=== PATIENT | female | born 1980 | race Caucasian/White ===

== ENCOUNTER 2016-06-14 21:18 | Day surgery (SDC) | payer OTHER ==
[~2016-06-14] VITALS: Ht 167.6 cm; Wt 84.7 kg
[2016-06-14 22:04] LABS: HEMATOCRIT 44.4 % (36.0-46.0); MCH 31.6 PG (29.0-34.0); MCHC 33.8 G/DL (30.0-36.0); MCV 93.5 FL (83-99); MEAN PLAT.VOLUME 9.7 uM^3 (9.5-12.4); PLATELET COUNT 232 K/uL (156-360); RBC DIS.WIDTH-CV 12.2 % (11.8-14.6); RED BLOOD COUNT 4.75 M/uL (3.80-5.20); WHITE BLOOD COUNT 19.5 K/uL (4.1-10.2)
[2016-06-14 22:11] LABS: CHLORIDE 103 mEq/L (99-109); POTASSIUM 3.6 mEq/L (3.7-5.4); SODIUM 138 mEq/L (136-147)
[2016-06-14 22:13] LABS: GLUCOSE 114 mg/dL (70-99)
[2016-06-14 22:15] LABS: ANION GAP 13 MEQ/L (2-14); TOTAL BILIRUBIN 2.7 mg/dL (0.0-1.0)
[2016-06-14 22:17] LABS: ALKALINE PHOSPHATASE 74 IU/L (3-129); GFR ESTIMATE (CALCULATED) > 59 mL/min/
[2016-06-14 22:18] LABS: UREA NITROGEN (BUN) 10 mg/dL (9-23)
[2016-06-14 22:25] LABS: QUANTITATIVE HCG < 4.0 MIU/ML
[2016-06-14] MEDS ORDERED: VIBERZI100 MG PO (23:20)
[2016-06-14] MEDS ORDERED: LEXAPRO10 MG PO (23:21)
[2016-06-14 23:29] LABS: LIPASE 4 U/L (1.0-51.0)
[2016-06-15] MEDS ORDERED: DICYCLOMINE HCL20 MG PO (00:22)
[2016-06-15 00:54] LABS: DIRECT BILIRUBIN 0.7 mg/dL (0.0-0.3)
[2016-06-15 01:21] LABS: INTER. NORMALIZED RATIO 1.1; PROTHROMBIN TIME 11.6 (9.2-11.2); PTT 28.6 (25-32)
[2016-06-15] MEDS ORDERED: COLACE100 MG PO (03:10)
[2016-06-15] MEDS ORDERED: PERCOCET 5/31 TABLET PO (03:10)
[2016-06-15] MEDS ORDERED: AUGMENTIN875 MG PO (03:11)
[2016-06-15 05:12] VITALS: BP 92/63
[2016-06-15 07:35] VITALS: BP 101/60
[2016-06-15 09:02] LABS: HEMATOCRIT 39.9 % (36.0-46.0); MCH 31.9 PG (29.0-34.0); MCHC 33.3 G/DL (30.0-36.0); MCV 95.7 FL (83-99); MEAN PLAT.VOLUME 10.2 uM^3 (9.5-12.4); PLATELET COUNT 199 K/uL (156-360); RBC DIS.WIDTH-CV 12.5 % (11.8-14.6); RBC DIS.WIDTH-SD 43.3 % (39-53); RED BLOOD COUNT 4.17 M/uL (3.80-5.20); WHITE BLOOD COUNT 17.7 K/uL (4.1-10.2)
[2016-06-15 11:45] VITALS: BP 99/66
[2016-06-15] MEDS ORDERED: ACYCLOVIR SODI500 MG PO (14:50)
[2016-06-15 15:17] VITALS: BP 102/67
[2016-06-15 18:55] VITALS: BP 114/79
[2016-06-15 23:35] VITALS: BP 102/68
[2016-06-16 04:00] VITALS: BP 101/67
[2016-06-16 07:00] VITALS: BP 96/64
[2016-06-16 09:46] LABS: EOSINOPHIL (%) 0.3 % (0-5); HEMATOCRIT 36.6 % (36.0-46.0); IMMATURE GRANULOCYTE (%) 0.2 % (0.0-0.7); LYMPHOCYTE COUNT 1.4 K/uL (1.0-2.8); MCH 30.7 PG (29.0-34.0); MCHC 32.5 G/DL (30.0-36.0); MCV 94.3 FL (83-99); MEAN PLAT.VOLUME 10.1 uM^3 (9.5-12.4); MONOCYTE (%) 4.2 % (3-12); MONOCYTE COUNT 0.5 K/uL (0-0.8); NEUTROPHIL (%) 82.2 % (45-76); NEUTROPHIL COUNT 8.7 K/uL (1.8-6.4); PLATELET COUNT 230 K/uL (156-360); RBC DIS.WIDTH-CV 12.4 % (11.8-14.6); RBC DIS.WIDTH-SD 42.7 % (39-53); RED BLOOD COUNT 3.88 M/uL (3.80-5.20)
[2016-06-16 09:47] LABS: WHITE BLOOD COUNT 10.6 K/uL (4.1-10.2)
[2016-06-16 11:15] VITALS: BP 116/95
== END 2016-06-16 12:45 | disposition home or self-care (01) ==
LOC: EME 21:18 → RME 21:18 → SDC 06-15 01:37 → 2SOUTH 06-15 02:47 → 2EAST 06-15 02:47
PROVIDERS: Surgery
PROC: 0DTJ4ZZ Resection of Appendix, Percutaneous Endoscopic Approach (ICD-10-PCS; principal; 2016-06-15)
DX: K35.3 Acute appendicitis with localized peritonitis (principal)
CPT/HCPCS: 74177; 80053; 81003; 82247; 82248; 83690; 84702; 85025; 85027; 85610; 85730; 88304; 94799; 99281; 99284; G0378; J0131; J0330; J1100; J1170; J1335; J2250; J2405; J2543; J3010; J7030; J7050